=== PATIENT | female | born 1970 | race Two or more races ===

== ENCOUNTER → 2024-10-23 | Outpatient (CLI) | payer OTHER, SELFPAY ==
--- NOTE | 2024-10-23 15:00 | XR_ITS ---
Examination: Screening digital mammography, bilateral Computer aided detection 3-D breast Tomosynthesis, bilateral Date and time of exam: October 23, 2024 1451 hours Compared to mammograms dating to January 23, 2021 Indication: Screening Technique: Nonmagnified MLO, CC views of the breasts to been obtained, reconstructed from 3-D Tomosynthesis images. R2 computer aided detection program utilized for evaluation of suspicious masses and/or abnormal calcifications. 3-D Tomosynthesis images obtained. Findings: Scattered areas of fibroglandular density. 12 mm focal asymmetry upper outer right breast 6 mm focal asymmetry upper outer left breast Impression: BI-RADS Category 0: Incomplete: Need additional imaging evaluation Recommend bilateral spot tomographic views upper outer quadrant right breast, upper outer quadrant left breast for further assess focal asymmetries described above, as well as bilateral breast sonography to complete the workup
== END | disposition home or self-care (01) ==
LOC: CDIM 14:42
PROVIDERS: Referring Provider Physician Assistant; Visit Provider Physician Assistant
DX: Z12.31 Encounter for screening mammogram for malignant neoplasm of breast (principal); R92.1 Mammographic calcification found on diagnostic imaging of breast
CPT/HCPCS: 77063; 77067

== ENCOUNTER → 2025-01-09 | Outpatient (CLI) | payer OTHER, SELFPAY ==
--- NOTE | 2025-01-09 10:00 | XR_ITS ---
Examination: Breast ultrasound complete, bilateral Date and time of exam: January 09, 2025 1028 hours INDICATIONS: Mammogram October 23, 2024 12 mm focal asymmetry upper outer right breast 6 mm focal asymmetry upper outer left breast Technique: Real-time grayscale ultrasonographic imaging bilateral breasts, including all 4 quadrants as well as nipple retroareolar and axillary regions. Findings: Sonographic images right breast 7:00 nodule lobular margins 6 x 5 mm 10:00 nodule circumscribed 11 x 11 mm 10:00 cyst 5 x 7 mm Right axillary lymph node 4.1 cm Sonographic images left breast 1:00 cyst 4 x 4 millimeter 2:00 cyst 9 x 6 mm No solid nodules IMPRESSION: BI-RADS Category 3: Probably benign findings One additional 6 month right breast sonogram follow-up is needed to document stability of solid nodules right breast described above
--- NOTE | 2025-01-09 11:00 | XR_ITS ---
Examination: Diagnostic digital mammography, bilateral Computer aided detection 3-D breast Tomosynthesis, bilateral Date and time of exam: January 09, 2025 1049 hours INDICATIONS: Mammogram October 23, 2024 12 mm focal asymmetry upper outer right breast 6 mm focal asymmetry upper outer left breast Technique: Nonmagnified MLO, CC views of the breasts to been obtained, reconstructed from 3-D Tomosynthesis images. R2 computer aided detection program utilized for evaluation of suspicious masses and/or abnormal calcifications. 3-D Tomosynthesis images obtained. Findings: The breasts are heterogeneously dense, which may obscure small masses Focal asymmetry 10:00 position right breast is present Focal asymmetry upper outer left breast remains Impression: BI-RADS Category 3: Probably benign findings Recommend 1 additional 6 month continued bilateral mammography follow-up.
== END | disposition home or self-care (01) ==
LOC: CDIM 09:37
PROVIDERS: Referring Provider Physician Assistant Medical; Visit Provider Physician Assistant Medical
DX: R92.333 Mammographic heterogeneous density, bilateral breasts (principal); N63.13 Unspecified lump in the right breast, lower outer quadrant; N63.11 Unspecified lump in the right breast, upper outer quadrant
CPT/HCPCS: 76641; 77062; 77066; G0279

== ENCOUNTER → 2025-07-23 | Outpatient (CLI) | payer OTHER, SELFPAY ==
--- NOTE | 2025-07-23 10:15 | XR_ITS ---
Examination: Breast ultrasound, unilateral, right complete Date and time of exam: July 23, 2025, 10:41 a.m. INDICATIONS: Mammogram January 09, 2025 7:00 nodule lobular margins 6 x 5 mm 10:00 nodule circumscribed 11 x 11 mm Technique: Real-time [place] scale ultrasonographic imaging performed right breast including all 4 quadrants as well as nipple retroareolar and axillary region. Findings: Multiple benign cysts,. 8:00 nodule circumscribed 6 x 6 mm Multiple smaller cysts Enlarged lymph node in the right axilla 4.8 cm IMPRESSION: BI-RADS Category 3: Probably benign findings Recommend 1 additional 6-month right breast sonogram follow-up to document stability of 8:00 nodule right breast and enlarged right axillary lymph
--- NOTE | 2025-07-23 11:15 | XR_ITS ---
Examination: Diagnostic digital mammography, bilateral Computer aided detection 3-D breast Tomosynthesis, bilateral Date and time of exam: July 23, 2025, 1121 hours INDICATIONS: Mammogram 820-second 2024 focal asymmetry 10 o'clock position right breast, focal asymmetry upper outer left breast Technique: Nonmagnified MLO, CC views of the breasts to been obtained, reconstructed from 3-D Tomosynthesis images. R2 computer aided detection program utilized for evaluation of suspicious masses and/or abnormal calcifications. 3-D Tomosynthesis images obtained. Findings: The breasts are heterogeneously dense, which may obscure small masses No suspicious left breast masses depicted There remains stable focal asymmetry upper right breast on the MLO view Impression: BI-RADS Category 0: Incomplete: Need additional imaging evaluation Recommend this patient return for dedicated right breast sonography upper right breast with a radiologist in attendance.
== END | disposition home or self-care (01) ==
LOC: CDIM 10:12
PROVIDERS: PCP Physician Assistant; Referring Provider Physician Assistant; Visit Provider Physician Assistant
DX: N63.13 Unspecified lump in the right breast, lower outer quadrant (principal); R59.0 Localized enlarged lymph nodes; R92.8 Other abnormal and inconclusive findings on diagnostic imaging of breast
CPT/HCPCS: 76641; 77062; 77066; G0279